=== PATIENT | female | born 1955 | race Caucasian/White ===

== ENCOUNTER 2018-02-01 00:36 | Emergency (ER) | payer OTHER ==
[~2018-02-01] VITALS: Ht 167.6 cm; Wt 77.0 kg
[2018-02-01 00:55] VITALS: BP 95/52; PULSE 86; RESP 18; TEMP 98.7; O2SAT 95
--- NOTE | 2018-02-01 01:09 | PD ---
HPI Chief Complaint: Fall Time Seen by Provider: 01:06 Travel History International Travel<30 days: No Contact w/Intl Traveler<30days: No Traveled to known affect area: No History of Present Illness HPI 61-year-old female presents via EMS for evaluation after a fall. The patient lives and [place]. She reports that she arrived yesterday and is currently staying with a friend. She reports that this evening she became intoxicated on rum and Coke. She then tripped and fell, landing on her right shoulder. She does not recall if she had her head or lost consciousness secondary to intoxication. She is complaining of pain in the right shoulder. Pain is moderate, aggravated by movement, no alleviating factors. She did not want to come to the hospital but her friend called EMS and she was agreeable to coming for evaluation. She denies any other injuries and she has no other complaints at this time. PFSH Past Medical History Cardiovascular Problems: Yes (HTN) Diabetes: No Patient Takes Glucophage: No Diminished Hearing: No Hypertension: Yes Immunizations Current: Yes Tetanus Vaccination: < 5 Years Influenza Vaccination: No ?: Not : 2 Para: 2 Tubal Ligation: Yes Social History Alcohol Use: Yes (DAILY) Tobacco Use: No Substance Use: Yes ([place]BIS) Allergies-Medications (Allergen,Severity, Reaction): Coded Allergies: Penicillins (Verified Allergy, Unknown, 02/01/18) Reported Meds & Prescriptions Reported Meds & Active Scripts Active Reported Effexor (Venlafaxine HCl) 75 Mg Tab 75 Mg PO Q12H Hydrocodone-Acetaminophen 5-325 mg Tab 1 Tab PO Q8HR PRN Labetalol (Labetalol HCl) 100 Mg Tab 100 Mg PO BID Review of Systems ROS Limitations: Intoxication Except as stated in HPI: all other systems reviewed are Neg Physical Exam Narrative GENERAL: Well-developed well-nourished female who is grossly intoxicated. SKIN: Warm and dry. HEAD: Atraumatic. Normocephalic. EYES: Pupils equal and round. No scleral icterus. No injection or drainage. ENT: No nasal bleeding or discharge. Mucous membranes pink and moist. NECK: Trachea midline. No JVD. CARDIOVASCULAR: Regular rate and rhythm. No murmur appreciated. RESPIRATORY: No accessory muscle use. Clear to auscultation. Breath sounds equal bilaterally. GASTROINTESTINAL: Abdomen soft, non-tender, nondistended. Hepatic and splenic margins not palpable. MUSCULOSKELETAL: No obvious deformities. Generalized tenderness to palpation of the right shoulder joint. Range of motion is quite limited. There is pain with passive and active range of motion of the right shoulder. There is no tenderness to palpation along the cervical thoracic or lumbar midline spine. NEUROLOGICAL: Awake and alert. No obvious cranial nerve deficits. Motor grossly within normal limits. Slurred speech Data Data Last Documented VS Vital Signs Date Time Temp Pulse Resp B/P (MAP) Pulse Ox O2 Delivery O2 Flow Rate FiO2 02/01/18 00:55 98.7 86 18 95/52 (66) [address] Brain W/O Iv Contrast(Rout) (02/01/18 ) Shoulder, Complete (>2vws) (02/01/18 ) Sling And Swathe (02/01/18 ) Sling And Swathe (02/01/18 ) Ed Discharge Order (02/01/18 03:13) Radiology Film Requests (02/01/18 ) [facility] Medical Decision Making Medical Screen Exam Complete: Yes Emergency Medical Condition: Yes Medical Record Reviewed: Yes Differential Diagnosis Proximal humeral fracture, rotator cuff strain, acromioclavicular separation, glenohumeral separation Narrative Course CT the brain, right shoulder x-ray been ordered. X-ray of the right shoulder reveals CONCLUSION: Comminuted fracture of right humeral neck The patient will be placed in a sling and swath. She reports that she has an orthopedic physician in [place]. She will follow-up with him next week. She has hydrocodone for pain control at home. She will be discharged with a copy of her x-ray when she is sober. Diagnosis Primary Impression: Proximal humeral fracture Additional Impression: Alcohol intoxication Referrals: Orthopedist Additional Instructions: Please provide the patient a copy of her x-ray and radiology report upon discharge. Sling. Follow-up with orthopedic physician in the next week. Return for any emergent medical conditions. Med/Other Pt SpecificInfo: Orthopedic Instructions Disposition: 01 DISCHARGE HOME Condition: Stable Lee Hendrix Feb 01, 2018 01:09
[2018-02-01] MEDS ORDERED: VENL75TA PO (01:10)
[2018-02-01] MEDS ORDERED: HYDR-3516 PO (01:10)
[2018-02-01] MEDS ORDERED: LABE100T2 PO (01:10)
--- NOTE | 2018-02-01 02:59 | RADRPT ---
EXAM DATE: 02/01/2018 2:09 AM EDT AGE/SEX: 62 years / Female INDICATIONS: Trauma. Fall. CLINICAL DATA: This is the patient's initial encounter. Patient reports that signs and symptoms have been present for 1 day and indicates a pain score of 8/10. MEDICAL/SURGICAL HISTORY: Cardiovascular disease. Hypertension. Substance abuse Tubal ligation. RADIATION DOSE: 32.89 CTDI (mGy) COMPARISON: No prior exams available for comparison. TECHNIQUE: CT of the head without contrast. Using automated exposure control and adjustment of the mA and/or kV according to patient size, radiation dose was kept as low as reasonably achievable to ob tain optimal diagnostic quality images. FINDINGS: Cerebrum: The ventricles are normal for age. No evidence of midline shift, mass lesion, hemorrhage or acute infarction. No extraaxial fluid collections are seen. Posterior Fossa: The cerebellum and brainstem are intact. The 4th ventricle is midline. The cerebe llopontine angle is unremarkable. Extracranial: The visualized portion of the orbits is intact. Skull: The calvaria is intact. No evidence of skull fracture. CONCLUSION: 1. Negative CT Head non contrast. Electronically signed by: Durga Hammond MD 02/01/2018 2:58 AM EDT
--- NOTE | 2018-02-01 03:04 | RADRPT ---
EXAM DATE: 02/01/2018 2:36 AM EDT AGE/SEX: 62 years / Female INDICATIONS: Right arm pain post fall. CLINICAL DATA: This is the patient's initial encounter. Patient reports that signs and symptoms have been present for 1 day and indicates a pain score of 10/10. MEDICAL/SURGICAL HISTORY: Non-responsive. Non-responsive. COMPARISON: No prior exams available for comparison. FINDINGS: There is a comminuted fracture of the right humeral neck. The acromioclavicular joint is unremarkable . The scapula is intact. CONCLUSION: Comminuted fracture of right humeral neck Electronically signed by: Durga Hammond MD 02/01/2018 3:03 AM EDT
[2018-02-01 07:25] VITALS: BP 105/82
== END 2018-02-01 07:36 | disposition home or self-care (01) ==
LOC: NEPD 00:36
DX: S42.201A Unspecified fracture of upper end of right humerus, initial encounter for closed fracture (principal); F10.129 Alcohol abuse with intoxication, unspecified; W01.0XXA Fall on same level from slipping, tripping and stumbling without subsequent striking against object, initial encounter; I10 Essential (primary) hypertension; Z88.0 Allergy status to penicillin; Z79.899 Other long term (current) drug therapy
CPT/HCPCS: 29240; 70450; 73030